=== PATIENT | male | born 1940 | race Caucasian/White ===

== ENCOUNTER 2016-05-29 05:57 | Day surgery (SDC) | payer MEDICARE, OTHER ==
[2016-05-29] MEDS ORDERED: LACTATED RINGERS 1,000 ML ONE (06:45)
[2016-05-29] MEDS ORDERED: PROPOFOL 200 MG/20 ML VIAL IV ONE (10:00)
--- NOTE | 2016-05-29 10:10 | OP ---
DATE OF PROCEDURE: 05/29/16 PREPROCEDURE DIAGNOSIS: 1. Family history of colon cancer. Father with CA of the colon. POSTPROCEDURE DIAGNOSIS: 1. Family history of colon cancer. Father with CA of the colon. PROCEDURE: 1. Colonoscopy to the cecum. SURGEON: Derek Pritchett MD. ANESTHESIA: Monitored anesthesia care. INDICATION: This gentleman has a family history of colon cancer. Last colonoscopy was over 10 years ago. FINDINGS: With the patient under adequate sedation, the scope was introduced. Digital exam showed normal anal canal with no anal fissure, fistula or rectal masses. Prostate appeared normal size. The rectum was unremarkable. Sigmoid colon showed scattered diverticulosis. Extremely redundant colon and technically difficult to get to the cecum. Colon preparation was good. The colon could be examined to fairly good advantage. However, because of multiple loops and bends, lesion could be easily overlooked. Maximal effort is made to see behind the bends. The cecum was reached and ileocecal valve visualized. The appendix opening was identified. Careful examination of the entire colon did not show any significant abnormality other than diverticulosis in the sigmoid colon. Specifically, no polyp, tumor, bleeding, or any other abnormality. Total scope withdrawal time was 9 minutes. FINAL IMPRESSION: 1. Diverticulosis of the colon. 2. Otherwise unremarkable colonoscopy. RECOMMENDATION: Despite family history of colon cancer, surveillance colonoscopy is not recommended beyond age 80 and no repeat study is indicated in this gentleman unless there is any bleeding or other symptoms. #[id number] [facility]
[2016-05-29 11:28] VITALS: BP 148/78; TEMP 98; O2SAT 98
== END 2016-05-29 10:40 | disposition home or self-care (01) ==
LOC: AMB 05:57
PROVIDERS: ATTEND Internal Medicine Gastroenterology
DX: Z12.11 Encounter for screening for malignant neoplasm of colon (principal); K57.30 Diverticulosis of large intestine without perforation or abscess without bleeding; I10 Essential (primary) hypertension; E11.9 Type 2 diabetes mellitus without complications; E78.5 Hyperlipidemia, unspecified; Z80.0 Family history of malignant neoplasm of digestive organs; Z79.899 Other long term (current) drug therapy
CPT/HCPCS: 00810; 82948; G0105; J3490; J7120

== ENCOUNTER → 2016-10-22 | Outpatient (CLI) | payer MEDICARE, OTHER | END | disposition home or self-care (01) | LOC: GMAL 10:30 | PROVIDERS: ATTEND Family Medicine | DX: D51.3 Other dietary vitamin B12 deficiency anemia (principal); Z85.46 Personal history of malignant neoplasm of prostate; E55.9 Vitamin D deficiency, unspecified ==

== ENCOUNTER → 2017-04-08 | Outpatient (CLI) | payer MEDICARE, OTHER | END | disposition home or self-care (01) | LOC: GMAL 11:05 | PROVIDERS: ATTEND Family Medicine | DX: D51.3 Other dietary vitamin B12 deficiency anemia (principal); R25.2 Cramp and spasm; E55.9 Vitamin D deficiency, unspecified ==

== ENCOUNTER → 2017-10-20 | Outpatient (CLI) | payer MEDICARE, OTHER | LOC: GMAL 10:49 | PROVIDERS: ATTEND Family Medicine | DX: D51.3 Other dietary vitamin B12 deficiency anemia (principal); R53.83 Other fatigue; Z85.46 Personal history of malignant neoplasm of prostate ==

== ENCOUNTER → 2018-10-21 | Outpatient (CLI) | payer MEDICARE, OTHER | LOC: GMAL 14:28 | PROVIDERS: ATTEND Family Medicine | DX: D51.3 Other dietary vitamin B12 deficiency anemia (principal); I10 Essential (primary) hypertension; E11.9 Type 2 diabetes mellitus without complications; E78.49 Other hyperlipidemia; R53.83 Other fatigue; E55.9 Vitamin D deficiency, unspecified; Z85.46 Personal history of malignant neoplasm of prostate ==

== ENCOUNTER → 2020-03-09 | Outpatient (CLI) | payer MEDICARE, OTHER | LOC: GMAL 10:58 | PROVIDERS: ATTEND Family Medicine | DX: D51.3 Other dietary vitamin B12 deficiency anemia (principal); I10 Essential (primary) hypertension; E55.9 Vitamin D deficiency, unspecified; Z85.46 Personal history of malignant neoplasm of prostate; R53.83 Other fatigue; Z79.899 Other long term (current) drug therapy ==